=== PATIENT | female | born 1980 | race Caucasian/White ===

== ENCOUNTER → 2019-05-15 11:26 | Outpatient (BNVA) | payer OTHER, SELFPAY | PROVIDERS: Visit Provider Nurse Practitioner | DX: M25.552 Pain in left hip (principal); W19.XXXA Unspecified fall, initial encounter | CPT/HCPCS: 73502; 74018; 80053 ==

== ENCOUNTER → 2019-05-20 14:36 | Outpatient (BNVA) | payer OTHER, SELFPAY | PROVIDERS: Visit Provider Nurse Practitioner | DX: E87.1 Hypo-osmolality and hyponatremia (principal) | CPT/HCPCS: 80048 ==

== ENCOUNTER → 2023-12-06 11:23 | Outpatient (BNVA) | payer BC, SELFPAY | PROVIDERS: PCP Nurse Practitioner Family; Visit Provider Nurse Practitioner | DX: R50.9 Fever, unspecified (principal); R05.9 Cough, unspecified | CPT/HCPCS: 87400; 87426 ==

== ENCOUNTER 2024-12-03 09:52 | Outpatient (CLI) | payer BC, SELFPAY ==
--- NOTE | 2024-12-03 10:00 | USCV_ITS ---
Opal Mohan Age: 44 Gender: F : 1980 Exam Date: 12/03/2024 10:39 Ordering Phys: Lois Pina MD Technologist: Exam Location: [facility] [place] Indication: cp sob BP: 128 / 78 HR: 75 Rhythm: Sinus Technical Quality: Adequate MEASUREMENTS (Male / Female) Normal Values 2D ECHO LV Diastolic Diameter PLAX 4.0 cm 4.2 - 5.9 / 3.9 - 5.3 cm IVS Diastolic Thickness 1.0 cm 0.6 - 1.0 / 0.6 - 0.9 cm IVS Systolic Thickness 1.3 cm LVPW Diastolic Thickness 1.3 cm 0.6 - 1.0 / 0.6 - 0.9 cm LVPW Systolic Thickness 1.5 cm LVOT Diameter 2.0 cm LV Ejection Fraction 2D Teich 69.7 % LV Ejection Fraction MOD 4C 60.3 % LV Ejection Fraction MOD 2C 79.2 % LV Ejection Fraction 2C AL 79.0 % LA Diameter 2.7 cm RA Systolic Volume 4C AL 22.7 ml RA Systolic Volume 4C MOD 21.7 ml Aorta at Sinotubular Diameter 2.3 cm IVC Diameter 1.8 cm M-MODE LA Ao Ratio MM 1.1 AV Cusp Separation MM 1.8 cm DOPPLER AV Peak Velocity 124.0 cm/s LVOT Peak Velocity 85.0 cm/s AV Area Cont Eq vti 2.5 cm squared AV Area Cont Eq pk 2.2 cm squared MV Peak Velocity 94.0 cm/s MV Area PHT 4.6 cm squared Mitral E to A Ratio 1.4 TV Peak Velocity 208.0 cm/s TR Peak Velocity 212.0 cm/s TR Peak Gradient 18.0 mmHg TV Peak E Velocity 99.0 cm/s PV Peak Velocity 98.0 cm/s FINDINGS Left Ventricle Normal left ventricular size, systolic function and wall thickness, with no regional wall motion abnormalities. Normal left ventricular size and systolic function, EF 60-65% Right Ventricle Normal right ventricular size and systolic function. Right Atrium Normal right atrial size. Left Atrium Normal left atrial size. Mitral Valve Structurally normal mitral valve. Trace mitral valve regurgitation. Aortic Valve Structurally normal aortic valve. No aortic valve stenosis. Tricuspid Valve Mild tricuspid valve regurgitation. Pulmonary artery systolic pressure is normal. Pulmonic Valve Not well visualized Pericardium Normal Aorta Normal in size IVC Appears to be normal CONCLUSIONS LV systolic function is normal with EF of 60-65% Trace mitral regurgitation Mild tricuspid regurgitation Shon Medina MD (Electronically Signed) Final Date: 06 December 2024 09:47 S
== END 2024-12-03 09:53 | disposition home or self-care (01) ==
LOC: RAD 09:55
PROVIDERS: PCP Nurse Practitioner Family; Visit Provider Internal Medicine
DX: R01.1 Cardiac murmur, unspecified (principal); I08.1 Rheumatic disorders of both mitral and tricuspid valves
CPT/HCPCS: 93306